=== PATIENT | female | born 1990 | race Caucasian/White ===

== ENCOUNTER 2018-03-01 21:43 | Inpatient (IN) | payer OTHER ==
[2018-03-01] MEDS ORDERED: METHYLERGONOVINE 0.2 MG INJ IM (22:30)
[2018-03-01] MEDS ORDERED: HYDROCODONE/APAP (5/325) TAB PO (22:30)
[2018-03-01] MEDS ORDERED: CARBOPROST 250 MCG INJ IM (22:30)
[2018-03-01] MEDS ORDERED: MISOPROSTOL 200 MCG TAB PR (22:30)
[2018-03-01] MEDS ORDERED: LIDOCAINE 1% (MPF) 30 ML INJ INJ (22:30)
[2018-03-01] MEDS: LACTATED RINGER'S 1,000 ML IV* (23:00)
[2018-03-01] MEDS: AMPICILLIN 2 GM/NS (PMX) 100 ML IV (23:12)
[2018-03-01 23:21] LABS: ADD MAN DIFF? NO
[2018-03-01 23:23] LABS: WHITE BLOOD COUNT 7.7 10^3/ul (4.8-10.8)
[2018-03-01 23:23] LABS: ABNORMAL IP MESSAGE 1; BASOPHILS % 0.3 % (0.0-2.0); EOSINOPHILS % 0.4 % (0.0-7.0); HEMATOCRIT 37.3 % (37.0-47.0); HEMOGLOBIN 12.7 g/dl (12.0-16.0); IMMATURE GRANS #M 0.04 10^3/ul; IMMATURE GRANS % (M) 0.5 %; LYMPHOCYTES # 1.4 10^3/ul (0.8-2.9); LYMPHOCYTES % 17.7 % (15.0-51.0); MEAN CORPUSCULAR HEMOGLOBIN 31.9 pg (29.0-33.0); MEAN CORPUSCULAR VOLUME 93.7 fl (82.0-101.0); MEAN PLATELET VOLUME 13.6 fl (7.4-10.4); MONOCYTE # 0.6 10^3/ul (0.3-0.9); MONOCYTES % 7.4 % (0.0-11.0); NEUTROPHIL # 5.7 10^3/ul (1.6-7.5); NEUTROPHILS % 73.7 % (39.0-77.0); PLATELET COUNT 146 10^3/UL (140-415); RED BLOOD COUNT 3.98 10^6/ul (4.20-5.40); RED CELL DISTRIBUTION WIDTH 13.5 % (11.5-14.5)
[2018-03-01 23:29] LABS: POSITIVE DIFF @See below
[2018-03-01 23:42] LABS: INR 0.97
[2018-03-01 23:43] LABS: PARTIAL THROMBOPLASTIN TIME 29.6 Sec (25.0-35.0)
[2018-03-02 00:11] LABS: HEPATITIS B SURFACE ANTIGEN NEGATIVE (NEGATIVE)
[2018-03-02] MEDS: BUTORPHANOL 2 MG INJ IV (00:12)
[2018-03-02] MEDS ORDERED: FENTAnyl 2MCG/ML-ROPIV 0.2% 100 ML (01:34)
[2018-03-02] MEDS ORDERED: NALOXONE (0.4 MG/ML) INJ IV (02:00)
[2018-03-02] MEDS ORDERED: AMPICILLIN 1 GM/NS (PMX) 50 ML IV (02:30)
[2018-03-02] MEDS: LACTATED RINGER'S 1,000 ML IV* ×3 (03:59→21:55)
[2018-03-02] MEDS: OXYTOCIN 30 UNITS/LR 500 ML IV ×4 (06:17→16:15)
[2018-03-02] MEDS: FENTAnyl 2MCG/ML-ROPIV 0.2% 100 ML BAG EPI (09:21)
[2018-03-02] MEDS: IBUPROFEN 600 MG TAB PO ×3 (13:38→23:40)
[2018-03-02] MEDS ORDERED: HYDROCODONE/APAP (5/325) TAB PO (16:00)
[2018-03-02] MEDS ORDERED: DIBUCAINE 1% 30 GM OINT PR (16:00)
[2018-03-02] MEDS ORDERED: ONDANSETRON 4 MG INJ IV (16:00)
[2018-03-02] MEDS ORDERED: ACETAMINOPHEN 325 MG TAB PO (16:00)
[2018-03-02] MEDS: OXYCODONE/ASPIRIN (4.88/325) TAB PO (16:11)
[2018-03-02] MEDS: BENZOCAINE 20% 56 ML SPRAY TOP (16:12)
[2018-03-02] MEDS: WITCH HAZEL/GLYCERIN PAD PR (16:12)
[2018-03-02] MEDS: LANOLIN 7 GM TUBE TOP (16:12)
[2018-03-02 21:45] LABS: RAPID PLASMA REAGIN NONREACTIVE (NR)
[2018-03-02] MEDS: SENNA/DOCUSATE NA (8.6MG/50MG) TAB PO (21:45)
[2018-03-03] MEDS: OXYCODONE/ASPIRIN (4.88/325) TAB PO ×3 (03:16→16:55)
[2018-03-03] MEDS: IBUPROFEN 600 MG TAB PO ×3 (05:41→17:55)
[2018-03-03] MEDS: SENNA/DOCUSATE NA (8.6MG/50MG) TAB PO ×2 (09:03→21:31)
[2018-03-03 09:25] LABS: ADD MAN DIFF? NO
[2018-03-03 09:34] LABS: ABNORMAL IP MESSAGE 1; BASOPHILS % 0.4 % (0.0-2.0); EOSINOPHILS # 0.2 10^3/ul (0.0-0.5); EOSINOPHILS % 2.4 % (0.0-7.0); HEMOGLOBIN 11.7 g/dl (12.0-16.0); IMMATURE GRANS #M 0.06 10^3/ul; IMMATURE GRANS % (M) 0.9 %; LYMPHOCYTES # 1.6 10^3/ul (0.8-2.9); LYMPHOCYTES % 22.2 % (15.0-51.0); MEAN CORPUSCULAR HEMOGLOBIN 30.8 pg (29.0-33.0); MEAN CORPUSCULAR HGB CONC 32.5 g/dl (32.0-37.0); MEAN CORPUSCULAR VOLUME 94.7 fl (82.0-101.0); MEAN PLATELET VOLUME 13.7 fl (7.4-10.4); MONOCYTE # 0.4 10^3/ul (0.3-0.9); NEUTROPHIL # 4.8 10^3/ul (1.6-7.5); NEUTROPHILS % 68.1 % (39.0-77.0); PLATELET COUNT 130 10^3/UL (140-415); RED CELL DISTRIBUTION WIDTH 13.9 % (11.5-14.5)
[2018-03-03] MEDS: HYDROCODONE/APAP (5/325) TAB PO (21:37)
[2018-03-04] MEDS: IBUPROFEN 600 MG TAB PO ×3 (01:19→12:34)
[2018-03-04] MEDS: OXYCODONE/ASPIRIN (4.88/325) TAB PO (07:27)
[2018-03-04] MEDS: BENZOCAINE 20% 56 ML SPRAY TOP (09:53)
[2018-03-04] MEDS: SENNA/DOCUSATE NA (8.6MG/50MG) TAB PO (09:53)
[2018-03-04] MEDS: MEASLES,MUMPS,RUBELLA VACCINE INJ SC* (09:54)
[2018-03-04] MEDS: WITCH HAZEL/GLYCERIN PAD PR (09:54)
== END 2018-03-04 13:40 | disposition home or self-care (01) | DRG 775 ==
LOC: OBT 21:43 → L-D 03-02 00:53 → PP1 03-02 15:45 → OBT 22:30 → L-D 22:30
PROVIDERS: Obstetrics & Gynecology
PROC: 10E0XZZ Delivery of Products of Conception, External Approach (ICD-10-PCS; principal; 2018-03-02)
PROC: 0HQ9XZZ Repair Perineum Skin, External Approach (ICD-10-PCS; 2018-03-02)
DX: O70.0 First degree perineal laceration during delivery (principal); Z3A.39 39 weeks gestation of pregnancy; Z37.0 Single live birth
CPT/HCPCS: 62319; 76815; 85025; 85610; 85730; 86592; 86850; 86900; 86901; 87340